=== PATIENT | male | born 1965 | race Caucasian/White ===

== ENCOUNTER 2016-12-18 05:39 | Inpatient (IN) | payer BC ==
[~2016-12-18] VITALS: Ht 182.9 cm; Wt 85.8 kg
--- NOTE | ~2016-12-18 | CR72 ---
[facility] A Service of [facility] RADIOLOGY TEXT RESULTS PATIENT: BARRY JOHNSTON LOCATION: [facility] 322-01 : 65 UNIT #: [id number] AGE: [address]: Mary Anne Lan MD SEX: M ORDER DR: [id number] [place], [place] [address] [id number] I MR#: [id number] Acc #: [id number] NAME: BARRY JOHNSTON : 1965 SEX: M STUDY DATE/TIME: 12/18/2016 5:54 [facility]: [id number] STUDY DESCRIPTION: CR Chest Single View Portable Attending Physician: Mary Anne Lan M.D. Ordering Physician: Chaka Mancini M.D. Primary Care Physician: No Primary Care Physician MEDICAL IMAGING REPORT This report is preliminary unless electronic signature is present EXAM AP portable chest DATE 12/18/2016 at 05:54 HISTORY 51-year-old male with possible allergic reaction. Woke up with tongue swelling tonight on 12/18/2016. HISTORY Rectal and lung cancer stage IV. COMPARISON PA and lateral chest radiograph 05/19/2014. FINDINGS Ill-defined interstitial thickening is present particularly in the right base, which appears slightly increased compared to the 2015 exam. Heart size is upper limits normal to stable. No pleural effusion or pneumothorax is seen. IMPRESSION 1. Increased interstitial thickening in the right base compared to 2015. May represent superimposed interstitial type infiltrates upon chronic fibrotic change. Dictated by... Sosa Rausch M.D. THIS IS AN ELECTRONICALLY VERIFIED REPORT Sosa Rausch M.D. at 12/19/2016 9:50 AM LLH/df [facility] A Service of [facility] RADIOLOGY TEXT RESULTS PATIENT: BARRY JOHNSTON LOCATION: [facility] 322-01 : 65 UNIT #: [id number] AGE: [address]: Mary Anne Lan MD SEX: M ORDER DR: TD: 12/18/2016 10:53 JOB #: [id number] MEDICAL IMAGING REPORT Page 1 of 1 COPY
--- NOTE | ~2016-12-18 | CT114 ---
[facility] A Service of [facility] RADIOLOGY TEXT RESULTS PATIENT: BARRY JOHNSTON LOCATION: [facility] : 65 UNIT #: [id number] AGE: [address]: Mary Anne Lan MD SEX: M ORDER DR: [id number] [facility]. [place], [place] [address] [id number] I MR#: [id number] Acc #: [id number] NAME: BARRY JOHNSTON : 1965 SEX: M STUDY DATE/TIME: 12/18/2016 11:14 UNIT: [address] ROOM: [facility] STUDY DESCRIPTION: CT Soft Tissue Neck W Cont Attending Physician: Mary Anne Lan M.D. Ordering Physician: Mary Anne Lan M.D. Primary Care Physician: Primary Care Physician No MEDICAL IMAGING REPORT This report is preliminary unless electronic signature is present EXAM Soft tissue neck CT with contrast 12/18/2016 PROCEDURE Axial contrast-enhanced soft tissue neck CT with multiplanar reformats. The CT exam was performed with one or more of the following radiation dose reduction techniques: automatic exposure control, adjustment of mA and/or kV according to patient size, and iterative reconstruction. COMPARISON None HISTORY Difficulty swallowing with the throwing and tongue swelling first noted this morning. FINDINGS There is hypopharyngeal and laryngeal mucosal edema. The airway is not acutely threatened, but is fairly narrow extending down to the level of the glottis. Subglottic airway is normal, though in the upper mediastinum there appears to be some esophageal mucosal thickening and mild irregular soft tissue fullness in the pericarinal region and AP window. There is no discrete mass or adenopathy. The vascular structures including the jugular veins appear patent. There is no fluid collection to suggest abscess. The bony structures are normal. There is irregular coarse infiltrate in the right upper lobe periphery. This pattern suggesting possible prior radiotherapy. There is spinal degenerative change without bone erosion or destruction. IMPRESSION [facility] A Service of [facility] RADIOLOGY TEXT RESULTS PATIENT: BARRY JOHNSTON LOCATION: [facility] : [birth year] UNIT #: [id number] AGE: [address]: Mary Anne Lan MD SEX: M ORDER DR: There is hypopharyngeal and laryngeal mucosal edema in a nonspecific pattern. There is no suspicious adenopathy or discrete fluid collection or bone erosion or destruction. In the upper mediastinum there is what appears to be esophageal leak and paraesophageal edema as well as irregular fluid or soft tissue density in the region of the AP window. Findings suggest the possibility of angioedema but again without discrete abscess. No mass or adenopathy. At the level of the true cords the airway is certainly narrowed but the vocal cords are in closed position at the time of the exams though the degree of narrowing may be slightly overestimated by the exam. Some coarse infiltrate in the right upper lobe anteriorly to the lung may represent a postradiation change, there are no prior chest CTs for comparison.. Dictated by... Morgan Putnam M.D. THIS IS AN ELECTRONICALLY VERIFIED REPORT oMrgan Putnam M.D. at 12/21/2016 2:13 PM CASA/teresa TD: 12/19/2016 12:19 JOB #: [id number] MEDICAL IMAGING REPORT Page 1 of 1 COPY
--- NOTE | ~2016-12-18 | DS ---
Unit #: [id number] #: [id number] Patient: BARRY GASCA [id number] [address] [address] [id number] I MR#: [id number] NAME: BARRY GASCA ROOM: 322 Age: 51 Sex: M Admission Date: 12/18/2016 : 1965 Discharge Date: 12/19/2016 Attending Physician: Mary Anne Lan M.D. Primary Care Physician: Primary Care Physician No DISCHARGE SUMMARY PRIMARY CARE PROVIDER Rosalina Fishman A.P.R.N. PRINCIPAL DIAGNOSES 1. Sepsis secondary to right lower lobe aspiration pneumonia. 2. Acute angioedema with unknown trigger. 3. Severe hyponatremia secondary to combination of beer man potomania with hypovolemia. 4. Starvation ketosis, now resolved. 5. Acute alcohol intoxication. 6. Chronic alcohol abuse without evidence of withdrawal during hospitalization. 7. Tobaccoism. 8. Prolonged QT, now resolved. 9. Sublingual excess tissue, does not appear malignant. 10. Gastroesophageal reflux disease. 11. Depression. 12. History of lung cancer. 13. History of rectal cancer. 14. History of deep venous thrombosis, status post filter placement. 15. Probable chronic obstructive pulmonary disease. CONSULTANTS None. PROCEDURES 1. Chest x-ray on 12/18/2016 with increased interstitial thickening in the right base. 2. CT scan of the neck of the soft tissues, which reveals swelling consistent with the patient's angioedema, but no mass, no lymphadenopathy. CLINICAL HISTORY AND HOSPITAL COURSE Mr. Gasca is a 51-year-old male, who presents to the emergency department with swelling of his throat and subsequent shortness of breath. Please refer to H and P for further details. In the emergency department, the patient was also found to have significant hyponatremia and a prolonged QT. He was also mildly hypoxic initially and chest x-ray revealed pneumonia. The patient was subsequently admitted. In regard to the patient's angioedema, he was placed on IV steroids and today, this has completely resolved. He is having no difficulty swallowing, no shortness of breath, and no hypoxia. We will give him a few doses of prednisone as an outpatient. He could not identify any Unit #: [id number] #: [id number] Patient: BARRY GASCA causative factor that would be more consistent with allergic reaction. He has never had a similar episode. I think at this point simply monitored if the patient has a recurrent episode and perhaps needs further workup for angioedema and/or allergies. The patient has hyponatremia. He was placed on IV fluids and today, sodium was corrected to 133. He has no associated neurologic deficit. Urine osmolality was normal and does appear he was significantly dehydrated. I suspect chronic alcohol abuse is also component and I have counseled him regarding alcohol cessation. In regard to the patient's pneumonia, he was placed on empiric Zosyn. He has had no fever. Again, no shortness of breath and lungs have been clear. I suspect this was perhaps aspiration in origin due to transient difficulty swallowing and will place him on a short course of Levaquin. The patient is also complaining of reflux and takes Nexium at home. I will give him a refill of Nexium prior to discharge. The patient also was found to have extra tissue sublingually with his swelling yesterday was difficult to determine if this was perhaps an underlying malignancy. CT scan of the jaw and neck however did not reveal any lymphadenopathy or masses. Evaluation today appears that this is just some excess benign tissue and I think he would be followed up as an outpatient. The patient will be discharged home later today. DISCHARGE CONDITION Stable. DISCHARGE STATUS Discharged to home. DISCHARGE MEDICATIONS Levaquin 750 mg p.o. daily for 5 days, Nexium 40 mg daily with one refill given, prednisone 20 mg tablets two tablets daily for 2 days and discontinue. I am going to discontinue Zoloft given patient's hyponatremia given that may be a causative factor. Discontinue the patient's Lomotil given lack of diarrhea. DISCHARGE INSTRUCTIONS The patient was instructed to follow a regular diet. He can increase activity as tolerated to refrain from any further alcohol use and tobacco use. FOLLOWUP The patient will follow up with Rosalina Fishman APRN in 2 weeks. Dictated by... Mary Anne Lan M.D. ANTONIO/nena TD: 12/21/2016 18:14 JOB #: [id number] Unit #: [id number] #: [id number] Patient: BARRY GASCA DISCHARGE SUMMARY Page 1 of 1 X Mary Anne Lan MD DISCHARGE SUMMARY
--- NOTE | ~2016-12-18 | EKG ---
PATIENT: BARRY JOHNSTON UNIT #: [id number] Ventricular Rate: 74 BPM Atrial Rate: 74 BPM P-R Interval: 134 ms QRS Duration: 118 ms Q-T Interval: 432 ms QTC Calculation(Bezet): 479 ms P [place]: 57 degrees Calculated R [place]: 20 degrees Calculated T [place]: 66 degrees Diagnosis Line: Normal sinus rhythm with sinus arrhythmia Diagnosis Line: Inferior infarct (cited on or before 18-MAY-2014) Diagnosis Line: Abnormal ECG Diagnosis Line: When compared with ECG of 18-DEC-2016 06:01, Diagnosis Line: T wave amplitude has increased in Anterior leads Diagnosis Line: QT has shortened Diagnosis Line: Confirmed by CARLOS JENSEN, YURI ([id number]) on 12/20/2016 Diagnosis Line: 7:56:44 AM INTERPRETING MD: CARLOS JENSEN
--- NOTE | ~2016-12-18 | EKG ---
PATIENT: BARRY JOHNSTON UNIT #: [id number] Ventricular Rate: 89 BPM Atrial Rate: 89 BPM P-R Interval: 144 ms QRS Duration: 114 ms Q-T Interval: 452 ms QTC Calculation(Bezet): 549 ms P [place]: 65 degrees Calculated R [place]: 52 degrees Calculated T [place]: 74 degrees Diagnosis Line: Normal sinus rhythm Diagnosis Line: Possible Inferior infarct , age undetermined Diagnosis Line: Prolonged QT Diagnosis Line: Abnormal ECG Diagnosis Line: No previous ECGs available Diagnosis Line: Confirmed by MILA PHAM MD ([id number]) on Diagnosis Line: 12/18/2016 8:43:37 AM INTERPRETING MD: ANKIT JENSEN
--- NOTE | ~2016-12-18 | HP ---
Unit #: [id number] #: [id number] Patient: BARRY GASCA [id number] [place], [place] [address] [id number] I MR#: [id number] NAME: BARRY GASCA ROOM: 55296 Age: 51 Sex: M Admission Date: 12/18/2016 : 1965 Attending Physician: Mary Anne Lan M.D. Primary Care Physician: No Primary Care Physician HISTORY AND PHYSICAL PRIMARY CARE PHYSICIAN Dr. Fishman. CHIEF COMPLAINT Tongue swelling, shortness of breath. HISTORY OF PRESENT ILLNESS Mr. Gasca is a 51-year-old male who presents to the ER for above. Patient states he has been feeling well until sometime yesterday afternoon. He abruptly began feeling more shortness of breath and felt as if his tongue and throat were swelling. He denies taking any new medications. He denies eating anything out of the ordinary. He denies dining at a restaurant. He has never had similar symptoms in the past. He did not take anything to try to alleviate symptoms at home. Last evening he became increasingly short of breath particularly in the middle of the night and contacted EMS. Patient was noted to have throat swelling, tongue swelling, and lip swelling by EMS and was given a single dose of epinephrine. When he presented here per ER notes, patient again was complaining of throat swelling and trouble breathing. He was given a dose of Benadryl, Pepcid, Solu-Medrol and oxygen saturation has improved. I will note O2 sat upon presentation from EMS was 96% on room air. He was placed on a nonrebreather for a short period. I think more for comfort than for O2 sats and O2 sats now are improved. However, blood work revealed a sodium level of 113 and alcohol was found to be elevated at 262. Patient was also found to have an elevated white blood cell count of greater than 22,000 and chest x-ray revealed right lower lobe infiltrate. The patient is being admitted for all of the above. Right now he is still complaining of some nausea and did have a few episodes of primarily dry heaves while I was in the room. He also had five or six episodes of nausea at home but denies any hematemesis or coffee-ground emesis. He denies any abdominal pain. He denies any diarrhea. He states he had been eating and drinking well prior to yesterday afternoon when his throat swelling began. He does admit to drinking six beers yesterday and states he does not drink on a daily basis. He denies any fever at home. He did have a cough for several days that was nonproductive. PAST MEDICAL HISTORY 1. Rectal cancer diagnosed in 08/2001. Patient has been in remission I believe since 2002. He underwent radiation, chemotherapy, and surgical excision of rectum with temporary colostomy and subsequent J-pouch formation per his history. 2. Prior history of alcohol abuse requiring [facility] admission 2002. 3. History of depression. 4. History of lung cancer. Unit #: [id number] #: [id number] Patient: BARRY GASCA PAST SURGICAL HISTORY 1. Again includes what sounds like partial colectomy with temporary colostomy and subsequent J-pouch formation in 2002. 2. Patient reports left upper lobe lobectomy in 2009. ALLERGIES No known drug allergies. HOME MEDICATIONS Known. FAMILY HISTORY Significant for colon cancer in patient's maternal grandfather and maternal uncle. SOCIAL HISTORY The patient is . He states he does not drink daily but will drink on the weekends, primarily beer. He still smoked a pack and a half of cigarettes per day and has done so for 30 years. 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 REVIEW OF SYSTEMS Patient denies any recent weight change. He has had cough, it has been nonproductive. No fever. He has been complaining of some intermittent dizziness. No vision changes. He is complaining of significant sore throat and difficulty swallowing, which is new since yesterday afternoon. He is having nausea and vomiting. He is complaining of shortness of breath now. Denies any chest pain, palpitations, orthopnea, PND. Again nausea and vomiting is noted. No abdominal pain. No constipation, diarrhea, melena or hematochezia. Denies any dysuria or change in urinary frequency. Denies any falls at home. Denies skin rashes. Otherwise ten point review of systems are reviewed and is negative, including no suicidal or homicidal ideation. PHYSICAL EXAMINATION VITAL SIGNS: Temperature 98.7, blood pressure 147/81, pulse rate 100, respiratory rate 22, oxygen saturation is 93% on room air. GENERAL: The patient is awake. He is initially tired but is arousable. Alert and oriented x3. HEENT: Pupils equal, round, reactive to light bilaterally. Anicteric sclerae. No conjunctival pallor. Oropharynx with moist mucous membranes. There is significant swelling of the lips and tongue. Patient has a white, what appears to be extra area of tissue under the tongue that appears sublingual and he states this is new. NECK: Posterior pharynx is erythematous but without exudate. Neck is supple. No lymphadenopathy. No thyromegaly. No JVD. HEART: Regular rate and rhythm without any murmur, rub or gallop. LUNGS: Mildly diminished bilaterally without any wheezes. There are rhonchi present in the right base posteriorly. ABDOMEN: Soft, nontender, nondistended. Positive bowel sounds. No appreciable hepatosplenomegaly. EXTREMITIES: No cyanosis, clubbing, or edema. Pedal pulse 2/4. SKIN: Limited due to the fact that patient is wearing his jeans but there is no obvious rash on examined areas. Skin does appear mildly dry. NEUROLOGIC: Cranial nerves II-XII intact. Sensation, strength and deep tendon reflexes are both grossly normal bilaterally. Gait, however, was not assessed. Unit #: [id number] #: [id number] Patient: BARRY GASCA PSYCHIATRIC: Mildly anxious but again alert and oriented x3. No suicidal or homicidal ideation. MUSCULOSKELETAL: No significant joint abnormalities noted upon examination. DIAGNOSTIC STUDIES LABORATORY STUDIES: Lab work done in the emergency department reveals a white blood cell count of 22.8 with 90% neutrophils, hemoglobin 15.3, platelet count 286,000. BNP is mildly elevated at 310. Sodium is 113, potassium 3.6, chloride 74, bicarb 21, BUN 8, creatinine 0.7, glucose 148. Calculated anion gap is 18, LFTs are normal including a normal albumin. Alcohol is 262. Initial troponin was negative. CARDIOLOGY STUDIES: EKG done in the emergency department reveals Q waves present in 2, 3, and AVF. Patient also has small Q waves in V5 and V6. QT is prolonged at 549. IMAGING STUDIES: Chest x-ray reveals right lower lobe infiltrate versus fibrosis. There is no obvious left upper lobe lobectomy on chest x-ray. ASSESSMENT 1. Sepsis secondary to right lower lobe pneumonia, question aspiration in origin. 2. Allergic reaction with probable early anaphylaxis with unknown causative source. 3. Severe hyponatremia, question alcohol induced + or - other. 4. High anion gap metabolic acidosis likely alcoholic ketosis + or - starvation ketosis. 5. Prolonged QT. 6. Acute alcohol intoxication. 7. Sublingual lesion, question underlying malignancy. 8. Tobaccoism. 9. History of gastroesophageal reflux disease. 10. History of depression. 11. History of rectal cancer. 12. History of lung cancer. 13. Probable history of COPD. 14. Abnormal EKG with Q waves. PLAN 1. Will admit patient to inpatient status with telemetry. 2. In regards to patient's right lower lobe pneumonia, I am going to place him on aspiration. Will place him on Zosyn and initiate sepsis protocol. Will followup chest x-ray and CBC in the morning. 3. Source of patient's allergic reaction is unclear. I am going to continue him on Solu-Medrol 60 mg IV q.8 in addition to p.r.n. Benadryl and will monitor symptoms. 4. I will place patient on normal saline at 75 mL an hour, monitor hyponatremia. I am going to check a TSH and a urine osmolality upon lab to help identify source. If it looks something more like SIADH or perhaps people need a CT scan of chest for further evaluation, particularly given his history. 5. I will monitor patient's acidosis with serial BMPs. If that worsens will place him on D5 containing fluids. Check a serum osmolality, rule out osmolar gap as well. 6. In regards to prolonged QT, I will just simply re-evaluate in the morning with repeat EKG. 7. Will place on CIWA protocol, Ativan only, and monitor for signs and Unit #: [id number] #: [id number] Patient: BARRY GASCA symptoms of alcohol withdrawal. Patient denies history of DTs, but again does have a strong history of alcohol abuse. 8. In regards to sublingual lesion, I am going to get a CT scan of lower jaw and the soft tissues of the neck. 9. Given his strong tobacco history, I am concerned there is an underlying mass. Will have ENT evaluate likely on an outpatient basis. Will monitor the lesion during hospitalization. 10. Briefly school counsellor regarding tobacco abuse, will provide nicotine patch as needed basis. 11. Will try to obtain records from [facility] regarding his history of rectal cancer and lung cancer. He appears to not have much history. Will place on thiamine and folate and provide DuoNeb on a p.r.n. basis as well. 12. Will check urine drug screen. 13. DVT prophylaxis with Lovenox. Time spent on admission 48 minutes. Dictated by Mary Anne Lan M.D. ANTONIO/sarah TD: 12/18/2016 09:44 JOB #: [id number] HISTORY AND PHYSICAL Page 1 of 1 X Mary Anne Lan MD HISTORY AND PHYSICAL
[2016-12-18 06:35] LABS: BASOPHIL% 0.1 % (0-2.5); HEMATOCRIT 44.5 % (38.0-50.0); HEMOGLOBIN 15.3 gm/dL (13.0-16.0); LYMPHOCYTE# 1.2 X10e3 (1.0-3.5); LYMPHOCYTE% 5.2 % (17.0-45.0); MEAN CELL VOLUME 93.3 FL (83-96); MEAN CORPUSCULAR HEMOGLOBIN 32.2 PG (28-34); MEAN CORPUSCULAR HGB CONC 34.5 g/dL (30-36); MEAN PLATELET VOLUME 6.6 FL (6.5-11.5); MONOCYTE# 1.2 X10e3 (0-1.0); MONOCYTE% 5.1 % (3.0-12.0); NEUTROPHIL# 20.4 X10e3 (1.5-7.1); NEUTROPHIL% 89.6 % (40-75); PLATELET COUNT 286 X10e3 (140-420); RED BLOOD COUNT 4.77 X10e (3.90-5.60); RED CELL DISTRIBUTION WIDTH 13.6 % (11.0-15.5); WHITE BLOOD COUNT 22.8 X10e3 (4.0-10.5)
[2016-12-18 06:36] LABS: DIFF IND YES
[2016-12-18 06:38] LABS: POC - CKMB 5.3 ng/mL (0.0-7.9); POC - TROPONIN <0.05 ng/mL (<=0.05)
[2016-12-18 06:50] LABS: PLATELET ESTIMATE NORMAL (NORMAL); RBC NORMAL YES
[2016-12-18 07:01] LABS: ALBUMIN SERUM 4.2 g/dL (3.5-5.0); BILIRUBIN,TOTAL 1.3 mg/dL (0.2-2.0); BUN/CREATININE RATIO 11.42; CALCIUM SERUM 8.4 mg/dL (8.4-10.2); CREATININE SERUM 0.7 mg/dL (0.6-1.4); GLOM FILT RATE Estimated 109.3 mL/min (>60); POTASSIUM 3.6 mmol/L (3.5-5.1); PROTEIN TOTAL SERUM 7.3 g/dL (6.0-8.3)
[2016-12-18 08:57] LABS: POC - CKMB 4.1 ng/mL (0.0-7.9); POC - TROPONIN <0.05 ng/mL (<=0.05)
[2016-12-18 09:59] LABS: SODIUM URINE RANDOM 11 mmol/L
[2016-12-18 10:02] LABS: OSMOLALITY,URINE 285 mOsmo/kg (250-900)
[2016-12-18 11:44] LABS: AMPHETAMINE NEG (NEG); BARBITURATES NEG (NEG); BENZODIAZEPINES NEG (NEG); COCAINE NEG (NEG); MARIJUANA POS (NEG); OPIATES NEG (NEG); TRICYCLIC ANTIDEPRESSANTS NEG (NEG); U METHADONE NEG (NEG)
[2016-12-18] MEDS ORDERED: ZOLOFT PO (12:25)
[2016-12-18] MEDS ORDERED: LOMOTIL WHITE2.5 M1 PO (12:26)
[2016-12-18 14:10] LABS: BUN/CREATININE RATIO 13.33; CREATININE SERUM 0.6 mg/dL (0.6-1.4); GLOM FILT RATE Estimated 116.5 mL/min (>60); POTASSIUM 3.9 mmol/L (3.5-5.1)
[2016-12-19 05:17] LABS: HEMATOCRIT 37.7 % (38.0-50.0); LYMPHOCYTE# 0.2 X10e3 (1.0-3.5); LYMPHOCYTE% 1.1 % (17.0-45.0); MEAN CELL VOLUME 93.9 FL (83-96); MEAN CORPUSCULAR HEMOGLOBIN 32.1 PG (28-34); MEAN CORPUSCULAR HGB CONC 34.2 g/dL (30-36); MEAN PLATELET VOLUME 7.3 FL (6.5-11.5); MONOCYTE# 0.7 X10e3 (0-1.0); MONOCYTE% 3.9 % (3.0-12.0); NEUTROPHIL# 18.3 X10e3 (1.5-7.1); PLATELET COUNT 195 X10e3 (140-420); RED BLOOD COUNT 4.02 X10e (3.90-5.60); RED CELL DISTRIBUTION WIDTH 13.9 % (11.0-15.5); WHITE BLOOD COUNT 19.2 X10e3 (4.0-10.5)
[2016-12-19 05:19] LABS: HEMOGLOBIN 12.9 gm/dL (13.0-16.0)
[2016-12-19 05:20] LABS: DIFF IND NO
[2016-12-19 05:52] LABS: CALCIUM SERUM 8.6 mg/dL (8.4-10.2); CREATININE SERUM 0.6 mg/dL (0.6-1.4); GLOM FILT RATE Estimated 116.5 mL/min (>60); MAGNESIUM 2.4 mg/dL (1.6-3.0); POTASSIUM 3.5 mmol/L (3.5-5.1)
[2016-12-19] MEDS ORDERED: NEXIUM PO (13:15)
[2016-12-19] MEDS ORDERED: LEVAQUIN750 M1 PO (13:15)
[2016-12-19] MEDS ORDERED: PREDNISONE PO (13:16)
[2016-12-29] MEDS ORDERED: ZOLOFT50 MG PO (11:55)
[2016-12-29] MEDS ORDERED: LOMOTIL 2.5-0.1 EACH (11:56)
[2016-12-29] MEDS ORDERED: LIBRIUM25 M1 PO (16:39)
[2016-12-29] MEDS ORDERED: LOPRESSOR PO ×2 (16:40→16:43)
[2016-12-29] MEDS ORDERED: AUGMENTIN PO (16:45)
== END 2016-12-19 14:45 | disposition home or self-care (01) | DRG 871 ==
LOC: CED 05:39 → CEDOF 07:40 → CED 08:19 → CEDOF 08:19 → C3A PCU 15:07
PROVIDERS: Emergency Medicine; Internal Medicine
PROC: B246YZZ Ultrasonography of Right and Left Heart using Other Contrast (ICD-10-PCS; principal; 2016-12-18)
DX: A41.9 Sepsis, unspecified organism (principal); J69.0 Pneumonitis due to inhalation of food and vomit; E87.2 Acidosis; E87.1 Hypo-osmolality and hyponatremia; T78.3XXA Angioneurotic edema, initial encounter; F10.229 Alcohol dependence with intoxication, unspecified; F17.210 Nicotine dependence, cigarettes, uncomplicated; I45.81 Long QT syndrome; K21.9 Gastro-esophageal reflux disease without esophagitis; F32.9 Major depressive disorder, single episode, unspecified; Z85.118 Personal history of other malignant neoplasm of bronchus and lung; J44.9 Chronic obstructive pulmonary disease, unspecified; Y90.8 Blood alcohol level of 240 mg/100 ml or more; Z80.0 Family history of malignant neoplasm of digestive organs; K13.70 Unspecified lesions of oral mucosa
CPT/HCPCS: 36415; 70491; 71010; 80048; 80053; 80307; 82553; 83605; 83735; 83880; 83930; 83935; 84300; 84443; 84484; 85025; 87040; 87651; 93005; 93306; 94640; 94760; 96361; 96374; 96375; 99291; G0480; J0696; J1200; J1650; J2405; J2543; J2550; J2920; J2930; J3411; J7042; Q9967